=== PATIENT | female | born 1940 | race Caucasian/White ===

== ENCOUNTER → 2016-12-03 | Day surgery (SDC) | payer OTHER ==
[2016-11-26 11:36] VITALS: Ht 162.6 cm; Wt 70.5 kg
[~2016-12-03] VITALS: Ht 162.6 cm; Wt 70.5 kg
[~2016-12-03] MED LIST: ASCO10003 PO; CALCTAB5 PO; CHOL100010 PO; IBUP-1050 PO; IOPAMIDOL INJ 61% 15 ML VIAL ONE; IRON1CAP2 PO; LIDOCAINE HCL 1% MPF 5 ML VIAL ONE; MULT-190 PO; MULT-506 PO; OXYC1CAP5 PO; PANT40TA PO; SODIUM CHLORIDE 0.9% INJ 10 ML VIAL ONE; VITBC PO
--- NOTE | 2016-12-03 14:31 | History & Physical Bridge - [place] ---
H&P Re-Evaluation Bridge Note: I have examined the patient, reviewed the History & Physical and in the interval since the performance of the History & Physical I have noted the following changes of clinical significance: No changes noted
[2016-12-03 14:58] VITALS: TEMP 36.9
--- NOTE | 2016-12-03 15:01 | Discharge Instructions ---
Discharge Instructions Visit Reason for Visit: Lumbar Radiculopathy Discharge Discharge Diagnosis / Problem: leg pain Discharge Goals Goal(s): Decrease discomfort, Improve function Anesthesia . Post Anesthesia Instructions: If you have had General Anesthesia or IV Sedation: * Do not drive today. * Resume driving when surgeon permits. * Do not make important decisions or sign legal documents today. * Call surgeon for: 1. Temperature elevations greater than 101 degrees F. 2. Uncontrollable pain. 3. Excessive bleeding. 4. Persistent nausea and vomiting. 5. Medication intolerance (nausea, vomiting or rash). * For nausea and vomiting use only clear liquids such as: tea, soda, bouillon until nausea subsides, then gradually increase diet as tolerated. * If you have any concerns or questions, call your surgeon's office. If physician is unavailable and it is an emergency, call 911 or go to the nearest emergency room. . Diet Recommendations Recommended Home Diet: resume previous diet Procedures Procedures Performed: Lumbar Epidural Steroid Injection Pending Studies Studies pending at discharge: no Medical Emergencies . Who to Call and When: Medical Emergencies: If at any time you feel your situation is an emergency, please call 911 immediately. . Non-Emergent Contact Non-Emergency issues call your: Specialist . . "Provider Documentation" section prepared by Alan León.
[2016-12-03 15:07] VITALS: BP 151/92; PULSE 86; O2SAT 97
--- NOTE | 2016-12-03 15:25 | OPERATIVE REPORT ---
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 POSTOPERATIVE DIAGNOSIS: Same. PROCEDURE: Right paramedian L5-S1 intralaminar epidural steroid injection under fluoroscopic guidance. SURGEON: Dr. Alan León. INDICATIONS: The patient is a 75-year-old white female who has received epidural injections in the past with great relief of her radicular complaints, typically last 3-5 months in duration. She presents today for an injection to provide her with relief as the last injection she has the effectiveness has worn off. PHYSICAL EXAMINATION: Pleasant female seated comfortably. She has some difficulty with forward flexion. She has reproduction of axial pain. She has normal lower extremity strength. Negative seated straight leg raises, intact sensation distally. CONSENT: Verbal and written consent was obtained from the patient. Risks and benefits were reviewed. Risks include but are not limited to epidural abscess, epidural hematoma, allergic reaction, dural puncture. The patient wishes to proceed. PROCEDURE: The patient was taken back to the special procedures room of the [facility] where she was maintained in a prone position. Backside was cleansed with Betadine x3 and a dry sterile dressing was applied. Fluoroscope was used to identify the L5-S1 intralaminar space. Overlying skin on the right side was anesthetized with 4 mL of lidocaine 1% with a 25 gauge 1.5-inch needle. A 22-gauge 3-1/2 inch Tuohy needle was then directed down towards the intralaminar space. It was advanced under lateral fluoroscopic guidance and loss of resistance was noted at a depth of 5 cm. Isovue-300 contrast 1 mL was injected in which demonstrated epidural uptake pattern which was confirmed with both AP and lateral views. She then underwent injection after negative aspiration of 40 mg of Depo-Medrol and 4 mL of preservative free sodium chloride. Injection was well tolerated and did not reproduce a significant radicular sensation down the leg. DISPOSITION: 1. The patient is taken out into the discharge recovery area where she will be discharged home once discharge once discharge criteria have been met. 2. Follow up in the [facility] office in 2-4 weeks. I attest to the content of the Intraoperative Record and any orders documented therein. Any exceptio ns are noted below.
== END | disposition home or self-care (01) ==
LOC: X.SURG 13:31
PROVIDERS: ATTEND Physical Medicine & Rehabilitation
DX: M48.06 Spinal stenosis, lumbar region (principal); M54.16 Radiculopathy, lumbar region; M43.16 Spondylolisthesis, lumbar region

== ENCOUNTER → 2017-04-02 | Outpatient (CLI) | payer OTHER ==
[~2017-04-02] MED LIST changes: +AZITTAB PO; +CALC600T37 PO; -IOPAMIDOL INJ 61% 15 ML VIAL ONE; -LIDOCAINE HCL 1% MPF 5 ML VIAL ONE; -SODIUM CHLORIDE 0.9% INJ 10 ML VIAL ONE
[2017-04-02 09:56] LABS: BLOOD UREA NITROGEN 12 mg/dl (7-18); BUN/CREATININE RATIO 15.4 (10-20); CALCIUM 8.5 mg/dl (8.5-10.1); CARBON DIOXIDE 32 mmol/L (21-32); CHLORIDE 103 mmol/L (98-107); CREATININE 0.79 mg/dl (0.60-1.20); GLUCOSE 101 mg/dl (70-99); POTASSIUM 4.2 mmol/L (3.5-5.1); SODIUM 141 mmol/L (136-145)
[2017-04-02 09:59] LABS: CHOLESTEROL 256 mg/dl (0-200); CHOLESTEROL/HDL RATIO 4.5; HDL CHOLESTEROL 57 mg/dl; LDL CHOLESTEROL CALCULATED 136 mg/dl; TRIGLYCERIDES 316 mg/dl (0-150); VERY LOW DENSITY LIPOPROT CALC 63 mg/dl
[2017-04-02 10:01] LABS: ESTIMATED AVERAGE GLUCOSE 123 mg/dl; HA1C FLAG Normal (Normal)
== END | disposition home or self-care (01) ==
LOC: C.LAB1850 08:00
PROVIDERS: ATTEND Internal Medicine
DX: E78.5 Hyperlipidemia, unspecified (principal); R73.9 Hyperglycemia, unspecified

== ENCOUNTER → 2017-05-20 | Day surgery (SDC) | payer OTHER ==
[2017-05-08 08:39] VITALS: Ht 162.6 cm; Wt 70.5 kg
[~2017-05-20] VITALS: Ht 162.6 cm; Wt 70.5 kg
[~2017-05-20] MED LIST changes: -AZITTAB PO; -CALC600T37 PO; +IOPAMIDOL INJ 61% 15 ML VIAL ONE; +LIDOCAINE HCL 1% MPF 5 ML VIAL ONE; +SODIUM CHLORIDE 0.9% INJ 10 ML VIAL ONE
[2017-05-20 16:10] VITALS: TEMP 37.1
--- NOTE | 2017-05-20 16:16 | Discharge Instructions ---
Discharge Instructions Date of Service May 20, 2017. Visit Reason for Visit: Lumbar Radiculopathy Discharge Discharge Diagnosis / Problem: right leg pain Discharge Goals Goal(s): Decrease discomfort, Improve function Medications Stopped Medications Name(s): Miracle-last taken Thursday05/17/17 Activity Recommendations Activity Limitations: resume your previous activity Anesthesia . Post Anesthesia Instructions: If you have had General Anesthesia or IV Sedation: * Do not drive today. * Resume driving when surgeon permits. * Do not make important decisions or sign legal documents today. * Call surgeon for: 1. Temperature elevations greater than 101 degrees F. 2. Uncontrollable pain. 3. Excessive bleeding. 4. Persistent nausea and vomiting. 5. Medication intolerance (nausea, vomiting or rash). * For nausea and vomiting use only clear liquids such as: tea, soda, bouillon until nausea subsides, then gradually increase diet as tolerated. * If you have any concerns or questions, call your surgeon's office. If physician is unavailable and it is an emergency, call 911 or go to the nearest emergency room. . Diet Recommendations Recommended Home Diet: resume previous diet Procedures Procedures Performed: LUMBAR EPIDURAL STERIOD INJECTION Pending Studies Studies pending at discharge: no Medical Emergencies . Who to Call and When: Medical Emergencies: If at any time you feel your situation is an emergency, please call 911 immediately. . Non-Emergent Contact Non-Emergency issues call your: Specialist . . "Provider Documentation" section prepared by Alan León. .
[2017-05-20 16:19] VITALS: BP 135/76; PULSE 80; O2SAT 98
--- NOTE | 2017-05-28 07:43 | [facility] Operative Report ---
Operative Report Date of Service May 20, 2017. Operative Report DATE OF SURGERY: 05/20/17. 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 POSTOPERATIVE DIAGNOSIS: Same. PROCEDURE: Right paramedian L5-S1 intralaminar epidural steroid injection under fluoroscopic guidance. SURGEON: Dr. Alan León. INDICATIONS: The patient is a 76-year-old white female who has received epidural injections in the past with great relief of her radicular complaints, typically last 3-5 months in duration. She presents today for an injection to provide her with relief as the last injection she has the effectiveness has worn off. PHYSICAL EXAMINATION: Pleasant female seated comfortably. She has some difficulty with forward flexion. She has reproduction of axial pain. She has normal lower extremity strength. Negative seated straight leg raises, intact sensation distally. CONSENT: Verbal and written consent was obtained from the patient. Risks and benefits were reviewed. Risks include but are not limited to epidural abscess, epidural hematoma, allergic reaction, dural puncture. The patient wishes to proceed. PROCEDURE: The patient was taken back to the special procedures room of the [facility] where she was maintained in a prone position. Backside was cleansed with Betadine x3 and a dry sterile dressing was applied. Fluoroscope was used to identify the L5-S1 intralaminar space. Overlying skin on the right side was anesthetized with 4 mL of lidocaine 1% with a 25 gauge 1.5-inch needle. A 22-gauge 3-1/2 inch Tuohy needle was then directed down towards the intralaminar space. It was advanced under lateral fluoroscopic guidance and loss of resistance was noted at a depth of 5 cm. Isovue-300 contrast 1 mL was injected in which demonstrated epidural uptake pattern which was confirmed with both AP and lateral views. She then underwent injection after negative aspiration of 40 mg of Depo-Medrol and 4 mL of preservative free sodium chloride. Injection was well tolerated and did not reproduce a significant radicular sensation down the leg. DISPOSITION: 1. The patient is taken out into the discharge recovery area where she will be discharged home once discharge once discharge criteria have been met. 2. Follow up in the [facility] office in 2-4 weeks. I attest to the content of the Intraoperative Record and any orders documented therein. Any exceptions are noted below. I attest to the content of the Intraoperative Record and any orders documented therein. Any exceptions are noted below.
== END | disposition home or self-care (01) ==
LOC: X.SURG 14:06
PROVIDERS: ATTEND Physical Medicine & Rehabilitation
DX: M43.16 Spondylolisthesis, lumbar region (principal); M48.06 Spinal stenosis, lumbar region

== ENCOUNTER → 2017-06-04 | Outpatient (CLI) | payer OTHER ==
[~2017-06-04] MED LIST changes: -IOPAMIDOL INJ 61% 15 ML VIAL ONE; -LIDOCAINE HCL 1% MPF 5 ML VIAL ONE; -SODIUM CHLORIDE 0.9% INJ 10 ML VIAL ONE
== END | disposition home or self-care (01) ==
LOC: C.LABSPEC 17:10
PROVIDERS: ATTEND Nurse Practitioner Family
DX: R31.29 Other microscopic hematuria (principal)

== ENCOUNTER → 2017-07-13 | Outpatient (CLI) | payer OTHER ==
--- NOTE | 2017-07-13 11:29 | DIAGNOSTIC IMAGING REPORT ---
MRI LUMBAR SPINE W/O CONTRAST CLINICAL HISTORY: Low back pain with bilateral leg radiculopathy. TECHNIQUE: Sagittal and axial T1, T2 and STIR images were obtained. COMPARISON STUDY: 06/20/2011 OBSERVATIONS: The vertebral bodies and posterior elements appear intact. There is no abnormal bony signal present to suggest a marrow replacement process. There is a stable 1 cm rounded area of decreased signal within the S1 vertebra. This is unlikely to be of clinical significance given its 6 year stability L1-2: No disc protrusions or extrusions. No evidence of spinal canal or neural foraminal compromise. L2-3: There is a minimal circumferential disc bulge. There is no significant spinal or foraminal stenosis L3-4: There is a mild circumferential disc bulge. There is no significant spinal or foraminal stenosis L4-5: There is a mild circumferential disc bulge. There is minimal triangular spinal canal narrowing. There is mild facet joint arthropathy. There is minimal right-sided foraminal narrowing. L5-S1: No disc protrusions or extrusions. No evidence of spinal canal or neural foraminal compromise. The conus medullaris and cauda equina appear normal. There is persistent right-sided hydronephrosis. IMPRESSION: 1. No significant change when compared the prior 2010 study 2. Multilevel spondylitic changes with multilevel disc bulges. Minor triangular spinal canal narrowing at the L4-5 level 3. Persistent dilatation of the right renal pelvis and collecting system Electronically signed by: German Weir M.D. 07/13/2017 11:28 AM Dictated Date/Time: 07/13/2017 11:23 AM
== END | disposition home or self-care (01) ==
LOC: C.MRI 10:25
PROVIDERS: ATTEND Physical Medicine & Rehabilitation
DX: M43.16 Spondylolisthesis, lumbar region (principal); M54.16 Radiculopathy, lumbar region

== ENCOUNTER → 2017-08-10 | Outpatient (CLI) | payer OTHER ==
[2017-08-10 11:39] LABS: ALT/SGPT 33 U/L (12-78); AST/SGOT 27 U/L (15-37); BLOOD UREA NITROGEN 12 mg/dl (7-18); BUN/CREATININE RATIO 15.3 (10-20); CALCIUM 8.9 mg/dl (8.5-10.1); CARBON DIOXIDE 29 mmol/L (21-32); CHLORIDE 101 mmol/L (98-107); CREATININE 0.78 mg/dl (0.60-1.20); GLUCOSE 102 mg/dl (70-99); POTASSIUM 4.2 mmol/L (3.5-5.1); SODIUM 138 mmol/L (136-145)
[2017-08-10 11:42] LABS: CHOLESTEROL 271 mg/dl (0-200); CHOLESTEROL/HDL RATIO 3.9; HDL CHOLESTEROL 70 mg/dl; LDL CHOLESTEROL CALCULATED 162 mg/dl; TRIGLYCERIDES 195 mg/dl (0-150); VERY LOW DENSITY LIPOPROT CALC 39 mg/dl
== END | disposition home or self-care (01) ==
LOC: C.LAB1850 09:30
PROVIDERS: ATTEND Internal Medicine
DX: E78.5 Hyperlipidemia, unspecified (principal); R73.9 Hyperglycemia, unspecified

== ENCOUNTER 2017-09-10 02:46 | Emergency (ER) | payer OTHER ==
[~2017-09-10 02:46] MED LIST changes: +CALC600T37 PO; -CALCTAB5 PO
[2017-09-10] MEDS ORDERED: ALBUT/IPRATROP 3MG/0.5MG NEB 3 ML VIAL INH STA (03:05)
--- NOTE | 2017-09-10 03:07 | EMERGENCY ROOM VISIT NOTE ---
History Report prepared by Natan: Rebekah Scott Under the Supervision of: Dr. Greyson Marquis M.D. First contact with patient: 03:06 Stated Complaint: TROUBLE BREATHING History of Present Illness The patient is a 76 year old female who presents to the Emergency Room with complaints of worsening shortness of breath over the last 3 days. The patient states that she developed a runny nose and a cough. She states that she started medication for these symptoms, which is when her shortness of breath began. She states that she also began to lose her voice. The patient reports that she was unable to sleep tonight, but that she has not been sleeping well the last couple of nights. She states that she is a former smoker, and that she quit 8 years ago. She denies nausea, abdominal pain, and chest pain. The patient also complains of back pain but states that she did not have her back injection yesterday. She denies a history of diabetes. She reports that she got her flu shot done last week. Source of History: patient Onset: 3 days ago Position: other (global) Quality: other (shortness of breath ) Timing: worsening Associated Symptoms: + cough, No chest pain, No nausea, No abdominal pain Review of Systems See HPI for pertinent positives & negatives. A total of 10 systems reviewed and were otherwise negative. Past Medical & Surgical Medical Problems: (1) COPD (chronic obstructive pulmonary disease) Family History No pertinent family history stated. Social History Smoking Status: Former Smoker Marital Status: Occupation Status: retired Current/Historical Medications Scheduled Ascorbic Acid (Vitamin C), 1,000 UNITS PO QAM Azithromycin (Zithromax Z-Nhan), 1 PKT PO UD Calcium (Calcium), 1 TAB PO QAM Cholecalciferol (Vitamin D), 1 TAB PO QAM Iron Combinations (Iron Complex), 65 MG PO QAM Multivitamin (Multivitamin), 1 TAB PO QAM Ocuvite Preservision (Ocuvite Preservision), 1 TAB PO BID Pantoprazole (Protonix), 40 MG PO QAM Vitamin B Complex (Vitamin B Complex), 1 TAB PO QD@08 Scheduled PRN Ibuprofen (Advil), 400 MG PO Q6-8H PRN for Pain Oxycodone Hcl (Oxycodone Hcl), 5 MG PO Q 8-12 HOURS PRN for Pain Allergies Coded Allergies: Codeine (Verified Allergy, Unknown, TROUBLE BREATHING IN HER CHEST., 09/09) Physical Exam Vital Signs Date Time Temp Pulse Resp B/P (MAP) Pulse Ox O2 Delivery O2 Flow Rate FiO2 09/10/17 06:24 89 18 128/88 98 09/10/17 06:04 89 18 128/88 98 Room Air 09/10/17 05:11 87 20 136/82 97 Room Air 09/10/17 04:08 88 18 153/77 95 Room Air 09/10/17 03:27 Room Air 09/10/17 03:00 87 20 129/70 96 Room Air 09/10/17 02:53 88 Physical Exam GENERAL: Patient is mildly anxious appearing and in no acute distress. HEENT: No acute trauma, normocephalic atraumatic, mucous membranes moist, no nasal congestion, no scleral icterus. Mild rhinorrhea bilateral naris. NECK: No stridor, no adenopathy, no meningismus, trachea is midline. LUNGS: No dyspnea. Faint expiratory wheezing bilateral lungs with good air movement. No wheeze, no rhonchi. HEART: Regular rate and rhythm. No murmurs, rubs, gallops appreciated. ABDOMEN: Soft, nontender, bowel sounds positive, no masses appreciated, no peritonitis. BACK: No midline tenderness, no CVA tenderness EXTREMITIES: Normal motion all extremities, no cyanosis, no edema. NEUROLOGIC: Alert and oriented, no acute motor or sensory deficits, no focal weakness, cranial nerves grossly intact. SKIN: No rash, no jaundice, no diaphoresis. Medical Decision & Procedures ER Provider Diagnostic Interpretation: X-ray 1 View Portable: Mild emphysema. Slight irregularity of left heart border new from previous chest X-ray. No effusion. No pneumothorax. Radiology results and stated below per my review and [employer]. CTA CHEST: Comparison: CT chest 10/24/10 No evidence of pulmonary embolism. Dilated right main pulmonary artery with a kinked appearance at its proximal aspect, possibly related to pulmonary hypertension. No aortic aneurysm or dissection. Emphysema. Large sliding hiatal hernia. Mild subsegmental atelectasis/scarring. 3 mm nodule left upper lobe. Left and right main hepatic bile ducts and common hepatic duct are dilated, measuring up to 1.4 cm at common hepatic duct. Common bile duct is not imaged. Laboratory Results 09/10/17 03:10 Test 09/10/17 03:10 09/10/17 03:20 D-Dimer 610 ug/L FEU (0-500) Anion Gap 7.0 mmol/L (3-11) Estimated GFR () 85.7 Estimated GFR (Non- 74.0 BUN/Creatinine Ratio 22.2 (10-20) Calcium Level 8.4 mg/dl (8.5-10.1) Troponin I < 0.015 ng/ml (0-0.045) Influenza Type A Antigen Neg for Influ A (NEG) Influenza Type B Antigen Neg for Influ B (NEG) Laboratory results as reviewed by me. Medications Administered Medications (Trade) Dose Ordered Sig/Kathy Route Start Time Stop Time Status Last Admin Dose Admin Albuterol/ Ipratropium (Duoneb) 3 ml NOW STAT INH 09/10/17 03:05 09/10/17 03:06 DC 09/10/17 03:23 3 ML Azithromycin (Zithromax Tab) 500 mg NOW STAT PO 09/10/17 06:11 09/10/17 06:12 DC 09/10/17 06:23 500 MG ECG Indication: SOB/dyspnea Rate (beats per minute): 89 Rhythm: normal sinus Findings: no acute ischemic change, no ectopy ED Course 0253: The patient was evaluated in room B6. A complete history and physical exam was performed. 0305: Ordered Duoneb 3 ml INH. 0345: The patient reports feeling better. 0440: I discussed in depth the pros and cons of a CT scan. The patient wishes to proceed with the CT scan. 0611: Ordered Zithromax Tab 500 mg PO. 0619: Reevaluated the patient. Discussed results and discharge instructions: She verbalized understanding and agreement. The patient is ready for discharge. Medical Decision Differential: Infectious, Reactive Airway Disease, Pneumonia, Pneumothorax, COPD , CHF, ACS, Pulmonary Embolism, MSK, GI, Dissection, amongst other etiologies entertained. 76 yr old female with cough, rhinorrhea, sore throat/hoarse voice, and some shortness of breath. She appears to be shob though states that she feels fine now and the she walks long distances daily without issue. Runny nose on and off last few weeks, though other symptoms acute over last few days. She looks well and other than laryngitis like voice and some mild expiratory wheezing no significant findings. History of smoking and CXR consistent with this. With anxiety and history on waxing/waning symptoms and her age felt dimer reasonable which was mildly elevated. We discussed the possibility of PE being low but not impossible and the options of doing CT PE study vs avoiding it. After shared decision patient wishes o proceed with CT PE. CT PE revealed evidence of emphysema, pulmonary artery abnormality consistent with pulm htn, liver findings , and small nodules. No abdominal complaints nor TTP thus I do not feel her symptoms are GI related. I feel that findings on CT represent chronic things and not cause of symptoms/shob today. While she may benefit some from seroids, I feel that given already inability to get sleep, adding in steroid would likely just worsen this and her anxiety. With just minimal wheezing I do not see that she requires continued albuterol. However, given smoking history, emphysema it does seem reasonable to add on abx. QTC OK thus azithro given. She was heavily advised on multiple requests to see her PCP in the very near future for repeat evaluation and to discuss findings from today. Stable and comfortable with this plan. Aware RTED at any time if worsening or other concerns. Medication Reconcilliation Current Medication List: was personally reviewed by me Blood Pressure Screening Patient's blood pressure: Normal blood pressure Impression Primary Impression: Shortness of breath Additional Impressions: Bronchitis Laryngitis Rhinorrhea Emphysema of lung Pulmonary hypertension Scribe Attestation The scribe's documentation has been prepared under my direction and personally reviewed by me in its entirety. I confirm that the note above accurately reflects all work, treatment, procedures, and medical decision making performed by me. Departure Information Dispostion Home / Self-Care Prescriptions Azithromycin (ZITHROMAX Z-NHAN) 250 Mg Tab 1 PKT PO UD, #1 PKT Prov: Greyson Marquis M.D. 09/10/17 Referrals Justin Dow M.D. (PCP) Forms HOME CARE DOCUMENTATION FORM, IMPORTANT VISIT INFORMATION Patient Instructions ED Laryngitis, My [facility] Additional Instructions You were given first dose of Azithromycin today. You can wait until tomorrow ( 09/10) to begin the prescription. Please follow up with your primary care provider for recheck in the next few days. Your CT Scan revealed you have Emphysema as well as Pulmonary Artery Enlargement consistent with Pulmonary Hypertension. You may need to be seen by a Morale Officer for further evaluation but you should discuss this with your primary provider and ask that he review the CT Scan results that were done this evening. We are always here to help. Problem Qualifiers
[2017-09-10 03:46] LABS: BLOOD UREA NITROGEN 17 mg/dl (7-18); BUN/CREATININE RATIO 22.2 (10-20); CALCIUM 8.4 mg/dl (8.5-10.1); CARBON DIOXIDE 27 mmol/L (21-32); CHLORIDE 106 mmol/L (98-107); CREATININE 0.77 mg/dl (0.60-1.20); GLUCOSE 110 mg/dl (70-99); POTASSIUM 4.2 mmol/L (3.5-5.1); SODIUM 140 mmol/L (136-145)
[2017-09-10] MEDS ORDERED: OPTIRAY 320 IV PRN (04:45)
[2017-09-10] MEDS ORDERED: AZITTAB PO (05:59)
[2017-09-10] MEDS ORDERED: AZITHROMYCIN 250 MG TAB PO STA (06:11)
[2017-09-10 06:24] VITALS: BP 128/88; PULSE 89; O2SAT 98
--- NOTE | 2017-09-10 07:17 | DIAGNOSTIC IMAGING REPORT ---
CHEST ONE VIEW PORTABLE CLINICAL HISTORY: [facility] dyspnea COMPARISON STUDY: 04/04/2014 FINDINGS: The bones soft tissues and hemidiaphragms are normal. The cardiomediastinal silhouette is normal. The lungs are clear. The pulmonary vasculature is normal. IMPRESSION: Negative chest. The above report was generated using voice recognition software. It may contain grammatical, syntax or spelling errors. Electronically signed by: Harjit Noonan M.D. 09/10/2017 7:16 AM Dictated Date/Time: 09/10/2017 7:14 AM
--- NOTE | 2017-09-10 07:32 | DIAGNOSTIC IMAGING REPORT ---
CT ANGIOGRAM OF THE CHEST CLINICAL HISTORY: Atypical chest pain. Dyspnea. COMPARISON STUDY: Chest x-ray dated 09/10/2017. Chest CT dated 10/24/2010. TECHNIQUE: Following the IV administration of 93 cc of Optiray 320, CT angiogram of the chest was performed from the upper abdomen to the thoracic inlet utilizing the pulmonary embolus protocol. Images are reviewed in the axial, sagittal, and coronal planes. 3-D MIPS images are created and assessed. IV contrast was administered without complication. A dose lowering technique was utilized adhering to the principles of ALARA. The examination is degraded by motion artifact. CT DOSE: 264.53 mGy.cm FINDINGS: Thyroid: Imaged portions of the thyroid gland appear atrophic. A 10 mm low-attenuation nodule is seen in the left lobe. Thoracic aorta: The thoracic aorta is normal in caliber and demonstrates standard 3-vessel arch anatomy. No dissection is seen. Pulmonary vasculature: The pulmonary trunk is normal in caliber. There is a somewhat kinked appearance of the right main pulmonary artery with distal dilatation measuring up to 2.7 cm. This is unchanged from previous and of indeterminant significance. There are no filling defects identified in main, lobar, or segmental pulmonary branches to suggest pulmonary embolus. Heart: The heart is top normal in size and without pericardial effusion. There are coronary artery calcifications. Lungs and pleural spaces: Evaluation of lung parenchyma is degraded by motion artifact. The trachea and central airways are clear. Emphysema is noted. There is no airspace consolidation or pleural effusion. Scarring is present in the right middle lobe. A 2 mm right upper lobe pulmonary nodule seen image #155 is unchanged from 2010 and of doubtful significance. Mediastinum: There is no mediastinal lymphadenopathy. Miley: Clear. Axillae: There is no axillary lymphadenopathy. Upper abdomen: There is mild central intrahepatic biliary ductal dilatation. There is a large hiatal hernia, with the majority of the stomach located in the thoracic cavity. Skeletal structures: The skeletal structures are osteopenic. No lytic or blastic bony lesions are seen. IMPRESSION: 1. There is no evidence of pulmonary embolus in the main, lobar, or segmental pulmonary arteries. 2. Emphysema. 3. There is no airspace consolidation or pleural effusion. 4. Large hiatal hernia. 5. The right main pulmonary artery has a somewhat kinked appearance and appears dilated distally. This is of indeterminant significance and is unchanged from 2010. This may be related to pulmonary artery hypertension. 6. Additional findings as above. Electronically signed by: Sd Carter M.D. 09/10/2017 7:31 AM Dictated Date/Time: 09/10/2017 7:24 AM
[2017-09-10 07:41] LABS: BASO % 0.3 %; BASO ABS # 0.02 K/uL (0-0.2); COMPLETE YES; EOS % 3.3 %; HEMATOCRIT 36.3 % (37-47); IG% 0.2 %; MEAN CELL VOLUME 94.5 fL (80-100); MEAN CORPUSCULAR HEMOGLOBIN 29.9 pg (25-34); MEAN CORPUSCULAR HGB CONC 31.7 g/dl (32-36); MEAN PLATELET VOLUME 9.7 fL (7.4-10.4); MONO % 7.7 %; NEUT % 65.5 %; PLATELET COUNT 205 K/uL (130-400); RED BLOOD COUNT 3.84 M/uL (4.2-5.4); WHITE BLOOD COUNT 6.09 K/uL (4.8-10.8)
== END 2017-09-10 06:25 | disposition home or self-care (01) ==
LOC: C.EDB 02:46
DX: J40 Bronchitis, not specified as acute or chronic (principal); J04.0 Acute laryngitis; R07.89 Other chest pain; J43.9 Emphysema, unspecified; K44.9 Diaphragmatic hernia without obstruction or gangrene; Z87.891 Personal history of nicotine dependence; J34.89 Other specified disorders of nose and nasal sinuses; I27.20 Pulmonary hypertension, unspecified

== ENCOUNTER → 2017-11-18 | Outpatient (CLI) | payer OTHER ==
[~2017-11-18] MED LIST changes: +CYCL10TA6 PO; +GABA-113 PO
--- NOTE | 2017-11-18 11:58 | DIAGNOSTIC IMAGING REPORT ---
R HIP UNILATERAL 2 VIEWS CLINICAL HISTORY: M79.609 Limb [id number] pain COMPARISON: None. DISCUSSION: Mild degenerative narrowing right hip joint space. No evidence for acetabular protrusion. Mild sclerosis superior margin of the acetabulum on a degenerative basis. No evidence for abnormal soft tissue calcification. IMPRESSION: Mild degenerative change. No acute process. The above report was generated using voice recognition software. It may contain grammatical, syntax or spelling errors. Electronically signed by: Harjit Noonan M.D. 11/18/2017 11:56 AM Dictated Date/Time: 11/18/2017 11:56 AM
== END | disposition home or self-care (01) ==
LOC: C.RAD1850 11:39
PROVIDERS: ATTEND Internal Medicine
DX: M79.609 Pain in unspecified limb (principal)

== ENCOUNTER → 2017-11-27 | Outpatient (CLI) | payer OTHER ==
[~2017-11-27] MED LIST changes: -CYCL10TA6 PO; -GABA-113 PO
--- NOTE | 2017-11-27 10:56 | DIAGNOSTIC IMAGING REPORT ---
ULTRASOUND RIGHT LOWER EXTREMITY VENOUS CLINICAL HISTORY: Right calf swelling. COMPARISON STUDY: Right lower extremity venous ultrasound dated 01/25/2015. TECHNIQUE: Real-time, grayscale, and color Doppler sonography of the deep veins of the right lower extremity was performed from the inguinal crease to the calf. Compression and augmentation were utilized. FINDINGS: There is no sonographic evidence of deep venous thrombosis identified in the right lower extremity. The common femoral, superficial femoral, and popliteal veins are patent and normally compressible. The greater saphenous vein and the profunda femoris vein at the junction with the common femoral vein are clear. The visualized calf veins are patent. IMPRESSION: There is no sonographic evidence of deep venous thrombosis identified in the right lower extremity. Electronically signed by: Sd Carter M.D. 11/27/2017 10:54 AM Dictated Date/Time: 11/27/2017 10:54 AM
== END | disposition home or self-care (01) ==
LOC: C.ULTRBC 10:32
PROVIDERS: ATTEND Physical Medicine & Rehabilitation
DX: M79.89 Other specified soft tissue disorders (principal)

== ENCOUNTER → 2018-06-07 | Outpatient (CLI) | payer OTHER ==
[~2018-06-07] MED LIST changes: -ASCO10003 PO
[2018-06-07 12:16] LABS: HEMATOCRIT 37.5 % (37-47); HEMOGLOBIN 12.2 g/dL (12.0-16.0); MEAN CELL VOLUME 93.3 fL (80-100); MEAN CORPUSCULAR HEMOGLOBIN 30.3 pg (25-34); MEAN CORPUSCULAR HGB CONC 32.5 g/dl (32-36); MEAN PLATELET VOLUME 9.9 fL (7.4-10.4); PLATELET COUNT 263 K/uL (130-400); RED CELL DISTRIBUTION WIDTH CV 13.7 % (11.5-14.5); RED CELL DISTRIBUTION WIDTH SD 46.3 fL (36.4-46.3); WHITE BLOOD COUNT 5.62 K/uL (4.8-10.8)
[2018-06-07 12:35] LABS: ALBUMIN 3.8 gm/dl (3.4-5.0); ALKALINE PHOSPHATASE 63 U/L (45-117); ALT/SGPT 25 U/L (12-78); AST/SGOT 12 U/L (15-37); BLOOD UREA NITROGEN 14 mg/dl (7-18); CALCIUM 8.5 mg/dl (8.5-10.1); CARBON DIOXIDE 29 mmol/L (21-32); CHOLESTEROL 258 mg/dl (0-200); GLUCOSE 99 mg/dl (70-99); LDL CHOLESTEROL CALCULATED 156 mg/dl; POTASSIUM 4.1 mmol/L (3.5-5.1); SODIUM 135 mmol/L (136-145); TOTAL PROTEIN 7.1 gm/dl (6.4-8.2)
== END | disposition home or self-care (01) ==
LOC: C.LAB1850 09:52
PROVIDERS: ATTEND Internal Medicine
DX: E78.5 Hyperlipidemia, unspecified (principal); G89.29 Other chronic pain; M79.609 Pain in unspecified limb

== ENCOUNTER 2024-01-01 11:29 | Observation (INO) ==
--- NOTE | 2024-01-01 11:55 | ED Triage Note ---
Date of Service January 01, 2024 Provider in Triage Author: Dagmar Puri History of Present Illness This patient was briefly evaluated while in triage. An abbreviated physical exam was performed. This patient is a 83-year-old Female who presents to the ED for evaluation weakness, poor appetite had diarrhea this morning and passed out-hit head/face "I'm just not doing well" poor historian Physical Exam GENERAL: NAD CARDIOVASCULAR: RRR RESPIRATORY: CTA ABDOMEN: BS x 4. Nontender to palpation. Initial orders for labs and / or imaging were placed and patient was placed in the waiting area until a bed is available. Please see further documentation for the full ED course.
[2024-01-01 13:28] LABS: Basophils # (auto) 0.04 K/uL (0.00-0.20); Basophils % (auto) 0.5 %; Eosinophils # (auto) 0.07 K/uL (0.00-0.50); Eosinophils % (auto) 0.8 %; Hematocrit (blood only) 42.2 % (37.0-47.0); Hemoglobin 13.7 g/dl (12.0-16.0); Immature Granulocytes # (auto) 0.03 K/uL (0.01-0.20); Immature Granulocytes % (auto) 0.3 %; Lymphocytes # (auto) 1.39 K/uL (1.20-3.40); Lymphocytes % (auto) 16.1 %; Mean Corpuscular Hemoglobin 28.6 pg (25.0-34.0); Mean Corpuscular Hgb Conc 32.5 g/dL (32.0-36.0); Mean Corpuscular Volume 88.1 fL (80.0-100.0); Mean Platelet Volume 9.4 fL (9.4-12.4); Monocytes # (auto) 0.59 K/uL (0.11-0.59); Monocytes % (auto) 6.8 %; Neutrophils # (auto) 6.51 K/uL (1.40-6.50); Neutrophils % (auto) 75.5 %; Platelet Count 307 K/uL (130-400); RDW Coefficient of Variation 14.2 % (11.5-14.5); RDW Standard Deviation 45.2 fL (36.4-46.3); Red Blood Count 4.79 M/uL (4.20-5.40); White Blood Count 8.63 K/ul (4.8-10.8)
--- NOTE | 2024-01-01 13:37 | CT Scan Report ---
HEAD CT NONCONTRAST CT DOSE: 625.8 mGy.cm HISTORY: syncope, hit head TECHNIQUE: Multiaxial CT images of the head were performed without the use of intravenous contrast. A utomated exposure control was utilized for this study. A dose lowering technique was utilized adheri ng to the principles of ALARA. Comparison: Head CT 09/07/2023. Findings: Chronic opacification of the left ethmoid air cell again noted. The mastoid air cells are c lear. Mild motion artifact. The calvarium and skull base are intact. There is no mass, hematoma, midl ine shift, acute infarct. White matter hypodensity is nonspecific but suggestive of microvascular isc hemic change. The ventricles and sulci demonstrate mild age-related involutional changes. Impression: Mild motion artifact. No definite acute intracranial abnormality. ACT 112: Negative or not required by law. Electronically signed by: Live Plasencia M.D. 01/01/2024 1:36 PM
[2024-01-01 13:53] LABS: Alanine Aminotransferase 11 U/L (7-52); Albumin Globulin Ratio 1.4 (0.9-2); Albumin Level 4.6 gm/dl (3.4-5.0); Alkaline Phosphatase 58 U/L (34-104); Anion Gap 7 (3-11); Aspartate Aminotransferase 15 U/L (13-39); BUN Creatinine Ratio 17.9 (10-20); Bilirubin,Total 0.3 mg/dl (0.2-1.0); Blood Urea Nitrogen 20 mg/dl (6-23); Calcium 9.7 mg/dl (8.6-10.3); Carbon Dioxide 28 mmol/L (21-32); Chloride 100 mmol/L (98-107); Est GFR (African American) 51.9 ml/min; Est GFR (Non-African American) 44.8 ml/min; Globulin 3.2 gm/dl (2.5-4.0); Glucose 104 mg/dl (70-99(Fasting)); Potassium 4.4 mmol/L (3.5-5.1); Sodium 135 mmol/L (136-145); Total Protein 7.8 gm/dl (6.0-8.3)
[2024-01-01 13:57] LABS: Troponin I High Sensitivity 46.9 pg/ml (0-14)
[2024-01-01 14:07] LABS: Thyroid Stimulating Hormone 3.065 uIu/ml (0.300-4.500)
--- NOTE | 2024-01-01 15:43 | Electrocardiogram Report ---
Test Reason : Blood Pressure : / mmHG Vent. Rate : 082 BPM Atrial Rate : 082 BPM P-R Int : 148 ms QRS Dur : 056 ms QT Int : 358 ms P-R-T Axes : 036 -03 038 degrees QTc Int : 418 ms Normal sinus rhythm Normal ECG When compared with ECG of 07-SEP-2023 13:34, Nonspecific T wave abnormality no longer evident in Lateral leads Confirmed by Justin Toth ([id number]) on 01/01/2024 3:43:08 PM Referred By: Confirmed By:Justin Toth
--- NOTE | 2024-01-01 17:11 | History & Physical Report ---
Date of Service January 01, 2024 Assessment & Plan (1) Syncope and collapse: Plan: Syncope x 2 with fall and head strike the morning of 01/[address] revealed no definite acute cranial abnormalities Hx of symptomatic anemia; however, H&H WNL EKG revealed NSR at 82 bpm; QTc 418 Troponin elevated at 46.9--> 91.1; Trend q4h x 3 Clinically, patient denies chest pain Fall precautions TSH WNL Echocardiogram ordered, pending Orthostatics ordered, pending UA ordered, pending PT/OT consulted A.m. CBC, BMP (2) B12 deficiency: Plan [facility]position: [facility] Full code Regular diet Fall precautions VTE PPx: Teds History of Present Illness Chief Complaint: Syncope Primary Care Provider: Kemar Sawyer DO Longoria is a 83-year-old female with PMH of COPD, left-sided Oleary's palsy, HLD, GERD, chronic vasomotor rhinitis, adjustment disorder, and CHASE. She presented for syncopal episode and fall the morning of 01/01. Patient's good friend (Edgardo) is present at the bedside and provides additional history, as patient appears anxious and upset about the prospect of staying. Patient's friend reports that she fell in the kitchen this morning, and when he helped her get back up, she got dizzy again while eating at the sink and fell and brought them both down. She denies head strike and LOC. She denies tripping. She denies having her legs give out. She denies dizziness prior to her fall, and is unsure why she fell but reports that she "just felt weak" and went down. Of note, the patient's friend reports that she had diarrhea the morning of 01/01. Patient denies any prior falls. She does not use a cane or walker for ambulation. She reports that she took pantoprazole, iron, and her vitamins this morning; no other medications. Patient is friend denies any slurred speech, unilateral deficits, or facial droop at that time. No changes in diet. No supplemental oxygen at home. She denies alcohol use, tobacco use, and smoking. No history of stroke, seizures, or MIs. Patient does note that she had a left shoulder injection earlier in the week, and that she takes tramadol for chronic back pain. She also has injections in her left eye, which has she been having for a while; follows with Dr. Gaytan at [facility]. Vital stable at time admission. ROS: Patient endorses generalized weakness, tingling in legs (resolved), and diarrhea. Patient denies fever, chills, nighsweats, changes in hearing/taste/smell/vision, blurry vision, photophobia, dizziness, lightheadedness, CARRILLO, confusion, slurred speech, facial droop, chest pain, cough, SOB, abdominal pain, nausea, vomiting, urinary symptoms, urination, or blood in urine or stool. Allergies Allergy/AdvReac Type Severity Reaction Status Date / Time No Known Allergies Allergy Verified 01/01/24 17:18 Home Medications Medication Instructions Recorded Confirmed Type ascorbic acid (vitamin C) 1,000 mg 1 g PO QAM 01/07/19 01/01/24 History tablet (Vitamin C) [id number] 8 mg-folic 400 1 tab PO QAM 01/07/19 01/01/24 History mcg-K 50 mcg-lutein 300 mcg tablet (Centrum Silver Women) vit C 250 mg-vit E 90 mg-zinc 40 1 tab PO BID 01/07/19 01/01/24 History mg-copper 1 [id number]-[id number] capsule (PreserVision AREDS-2) acetaminophen 500 mg tablet 500 mg PO BID PRN Pain 09/15/23 01/01/24 History ferrous sulfate 325 mg (65 mg 325 mg PO Q OTHER DAY 90 days #45 09/21/23 01/01/24 Rx iron) tablet,delayed release tabs pantoprazole 40 mg tablet,delayed 40 mg PO DAILY 11/11/23 01/01/24 History release tramadol 50 mg tablet 50 mg PO BID PRN pain #30 tabs 11/18/23 01/01/24 Rx methocarbamol 750 mg tablet 750 mg PO TID PRN back spasm #30 12/16/23 01/01/24 Rx tabs Past Med/Surg History Medical History Schatzki's ring Hiatal hernia BCC (basal cell carcinoma) Gastric ulcer Left-sided Oleary's palsy UPJ (ureteropelvic junction) obstruction Right lumbar radiculopathy Vaginal prolapse Chronic obstructive pulmonary disease Chronic pain 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, lumbar region Osteopenia Surgical History History of esophagogastroduodenoscopy (EGD) History of cataract surgery History of tooth extraction S/P epidural steroid injection History of cholecystectomy History of tonsillectomy History of appendectomy H/O basal cell carcinoma excision History of colonoscopy Hx of lumpectomy History of exploratory laparotomy Family History Father Family history of stomach cancer Family history of pancreatic cancer Mother Diabetes Myocardial infarction Family history of diabetes mellitus Grandmother Diabetes Other No family history of adverse response to anesthesia Denies family history of Ovarian cancer Prostate cancer Breast cancer Lung cancer Colorectal cancer Stroke Social History Smoking Status: Former smoker Tobacco Type: Cigarettes Age Started Using Tobacco: 18; Age Quit Using Tobacco: 25; packs per day: 0.25; Second Hand Exposure: No; Do You Dip or Chew Tobacco: No; Hx Alcohol Use: Yes Alcohol type: wine Alcohol Intake Frequency: Monthly or Less Hx Substance Use: No Preferred Language: Ukrainian Communication Ability: Effective Visual Impairment: Limited Hearing Ability: Normal Demurrage Agent Required: No Beliefs That Will Affect Care: None marital status: / Current Living Situation: Significant Other Current Living Situation Comment: Edgardo Manning, Friend current occupational status: retired current occupation: used to work in a [employer], 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 [place] How many Children do You have: 2 Feels Safe at Home: Yes Childhood Exposure to Second-Hand Smoke: No Diet: regular caffeine: Yes Dental Care, Regularly: Yes Physical Activity Frequency: 3-4 Times per Week Seatbelt Use: always Sunscreen Use: Yes Assistive Devices: Denture - Upper, Denture - Lower and Glasses Review of Systems Review of Systems: See HPI above Physical Exam Physical Exam: General: no acute distress; anxious; non-toxic appearing; cooperative HEENT: normocephalic, atraumatic; no scleral icterus; PERRLA w/ EOMs intact; moist mucus membrane; vision and hearing grossly intact Neck: supple; no lymphadenopathy; trachea midline Skin: warm, dry without signs of tenting; no cyanosis; no rashes, bruising, lesions, or erythema noted CV: chest wall NTP; RRR; S1/S2 normal; no murmurs/rubs/gallops; pulses intact and symmetric at radial, DP, and PT Lungs: no acute respiratory distress; symmetrical chest wall expansion; clear breath sounds across all lung staton w/o adventitious sounds; no wheezing ABD: Soft, NTP; BS present; no rebound/guarding; no distention MSK: no tics or fasciculations; no edema noted in the LEs b/l, nonerythematous Neuro: Patient is alert and oriented to name//location, but not to month, and questionably to purpose; fluent speech; no facial droop; no focal deficits; sensation grossly intact in the LEs b/l; negative pronator drift Results & Data Results & Data Vital Signs (Past 12 Hours) Vital Signs Temp Pulse Pulse Resp BP BP Pulse Ox 01/01/24 16:52 79 16 129/62 97 01/01/24 16:45 76 01/01/24 15:18 81 16 99/65 L 97 01/01/24 15:18 01/01/24 15:18 01/01/24 11:50 36.7 C 121 H 18 109/69 98 O2 Del Method 01/01/24 16:52 Room Air 01/01/24 16:45 01/01/24 15:18 Room Air 01/01/24 15:18 Room Air 01/01/24 15:18 Room Air 01/01/24 11:50 Room Air Laboratory Results Abnormal lab results 01/01/24 01/01/24 Range/Units 13:09 15:28 Neut # (Auto) 6.51 H (1.40-6.50) K/uL Sodium 135 L (136-145) mmol/L Glucose 104 H (70-99(Fasting)) mg/dl Troponin I High Sens 46.9 H 91.1 H* D (0-14) pg/ml Diagnostic Findings Head CT 01/01/24 11:[address] DOSE: 625.8 mGy.cm HISTORY: syncope, hit head TECHNIQUE: Multiaxial CT images of the head were performed without the use of intravenous contrast. Automated exposure control was utilized for this study. A dose lowering technique was utilized adhering to the principles of ALARA. Comparison: Head CT 09/07/2023. Findings: Chronic opacification of the left ethmoid air cell again noted. The mastoid air cells are clear. Mild motion artifact. The calvarium and skull base are intact. There is no mass, hematoma, midline shift, acute infarct. White matter hypodensity is nonspecific but suggestive of microvascular ischemic change. The ventricles and sulci demonstrate mild age-related involutional changes. Impression: Mild motion artifact. No definite acute intracranial abnormality. ACT 112: Negative or not required by law. Electronically signed by: Live Plasencia M.D. 01/01/2024 1:36 PM Code Status & VTE Plan Code Status Full code VTE Prophylaxis Plan VTE Prophylaxis will be ordered: Yes Supervising Physician Co-Signing Physician Notes Patient seen and examined, chart reviewed, case discussed with Live Mcdaniels, PAC and I agree with the assessment and plan as above except as otherwise noted Labs and images reviewed Swati is an 83yo F who presents with syncope x [address] is normal and without intracranial bleed. EKG is without dysrhythmia. Troponin is mildly elevated and trended. Patient has had no chest pain at any point. At bedside she reports she does feel generally weak with some diarrhea recently. She reports that she was eating sink and then got lightheaded and fell, attempted to stand and fell again. Lungs are clear, heart rate is regular, no lower extremity swelling .she had a slight prodrome of weakness prior to her episode. No focal deficits on exam. No leukocytosis, creatinine is at baseline. No urinary symptoms.. Hemoglobin is normal. Normotensive at bedside . orthostatics pending. Agree with overnight monitoring for troponin trend, echo as noted, and monitoring for arrhythmia. Clinically stable at time of bedside assessment PG Care Time/CCT Total # of Minutes Spent Total Time Spent with Patient: Total time spent is greater than 50% in coordination of care (as documented) at patient's floor/unit and/or counseling patient: [place] [address] INT INP/OBS CARE 1/40MIN Patient Type Established History Detailed Exam Detailed Medical Decision Making Low Complexity Diagnoses Syncope and collapse R55 B12 deficiency E53.8
[2024-01-01] MEDS ORDERED: MELATONIN 3 MG TAB PO PRN (17:59)
--- NOTE | 2024-01-01 18:23 | Emergency Department Note ---
Impression & Plan Syncope and collapse, Elevated troponin, CHI (closed head injury) ED Provider Note NAME: JESSE GALLEGOS AGE: 83 SEX: Female INFORMANT: Patient and ED PROVIDER(S): Marv Ludwig MD CHIEF COMPLAINT: Syncope PLAN: Disposition: Admitted Outpatient prescription management: none Referral: None MEDICAL DECISION MAKING: Patient present because of a syncopal like episode. She had some mild confusion on examination about the details. notes that she has had forgetful issues in the past and does not think this is anything different. She had head CT that was done and negative. Patient's ECG did not show any acute findings noted cardiac monitoring. Patient's cardiac troponin was mildly elevated and a repeat troponin was done. This increased significantly. I am concerned about a possible cardiac source. Patient was initially reluctant to stay in the hospital although did not remember initial conversation about the findings. In light of this I did strongly recommend the need to stay in the hospital and patient was in agreement. Discussed this with the as well as he was present in the room. Patient will need further management in the hospital. Consultation was made with Dr. Mitchel Bills of the [facility] service. Case discussed and diagnostics were reviewed patient was evaluated in the ER for further management. Care/management discussed with: land surveying manager Level of care consideration(s): After review of the information above and other included data, I feel the patient requires escalation of care to admission Triage Nursing notes: reviewed and agree them. Vital Signs: reviewed and remarkable for no significant abnormalities Additional History obtained from: Patient's . He noted no slurred speech or strokelike symptoms after the event. Notes they were very short in duration less than a minute. Chronic Medical/Social Conditions affecting care: Patient denies Prior/ Outside/ External records reviewed: none Differential Diagnosis:Vasovagal event, dehydration, infection, hypoglycemia, electrolyte abnormalities, cardiac sources, intracerebral event, pulmonary embolism, seizure, toxicologic, neurologic, as well as other pathologies. Diagnostics, independently interpreted by me: ECG: Twelve-lead ECG reveals a normal sinus rhythm at [address] No [address] elevation. No PACs or PVCs. Cardiac Monitoring: Cardiac monitoring ordered by me: The patient was placed on continuous cardiac monitoring and observed. It revealed a normal sinus rhythm at 70 beats per minute without ectopy or evidence of dysrhythmia. Medical decision rules: none Imaging studies: None HPI: 83 year old Female arrives for evaluation of syncopal event. This occurred this morning. Patient noted to have 1 event where she got very weak. She then had a second event. She does not think that she lost consciousness on the second event. There is possible that she did on the first but details are somewhat foggy. is present and helps with the history. Patient denied any recent illness. She has been in normal health per her and the . She had no prodrome. Patient denied any palpitations or racing heartbeat. She denied any vertigo or room spinning sensation. No prior history of the same. Patient did strike her face and head when she fell. Pt denies headache, fevers, chills, diaphoresis, visual changes, neck pain, chest pain, breathing difficulties, nausea, vomiting, abdominal pain, back pain, melena, hematochezia, urinary symptoms, numbness, weakness, lymphadenopathy, rash, or other complaints. PAST MEDICAL HISTORY: See Below, peptic ulcer disease PAST SURGICAL HISTORY: See below, SOCIAL HISTORY: See Below, HOME MEDICATIONS: See Below ALLERGIES: See Below VITALS: See Below PHYSICAL EXAMINATION: GENERAL: Awake, alert, well-appearing, in no distress HENT: Normocephalic, atraumatic. Oropharynx unremarkable. EYES: Normal conjunctiva. Sclera non-icteric. NECK: Inspection normal. Non-tender. Supple. No nuchal rigidity. FROM. No masses. RESPIRATORY: Clear to auscultation. No wheezes. No rales. Normal respiratory effort. CARDIAC: Normal rate. Normal rhythm. No murmurs. No rubs. Extremities warm and well perfused. Pulses equal. No JVD. GI: Soft, non-distended. No tenderness to palpation. No rebound or guarding. No masses. RECTAL: Deferred. MUSCULOSKELETAL: Atraumatic. Chest examination reveals no tenderness. The back is symmetrical on inspection without obvious abnormality. There is no CVA tenderness to palpation. No joint edema. LOWER EXTREMITIES: Calves are equal size bilaterally and non-tender. No edema. No discoloration. NEURO: Normal sensorium. No sensory or motor deficits noted. SKIN: No rash or jaundice noted. 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, lumbar region Osteopenia Surgical History History of esophagogastroduodenoscopy (EGD) History of cataract surgery History of tooth extraction S/P epidural steroid injection History of cholecystectomy History of tonsillectomy History of appendectomy H/O basal cell carcinoma excision History of colonoscopy Hx of lumpectomy History of exploratory laparotomy Family History Father Family history of stomach cancer Family history of pancreatic cancer Mother Diabetes Myocardial infarction Family history of diabetes mellitus Grandmother Diabetes Other No family history of adverse response to anesthesia Denies family history of Ovarian cancer Prostate cancer Breast cancer Lung cancer Colorectal cancer Stroke Social History Smoking Status: Former smoker Tobacco Type: Cigarettes Age Started Using Tobacco: 18; Age Quit Using Tobacco: 25; packs per day: 0.25; Second Hand Exposure: No; Do You Dip or Chew Tobacco: No; Hx Alcohol Use: Yes Alcohol type: wine Alcohol Intake Frequency: Monthly or Less Hx Substance Use: No Preferred Language: Divehi Communication Ability: Effective Visual Impairment: Limited Hearing Ability: Normal Composite Technician Required: No Beliefs That Will Affect Care: None marital status: / Current Living Situation: Significant Other Current Living Situation Comment: Edgardo Manning, Friend current occupational status: retired current occupation: used to work in a [employer], 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 [place] How many Children do You have: 2 Feels Safe at Home: Yes Childhood Exposure to Second-Hand Smoke: No Diet: regular caffeine: Yes Dental Care, Regularly: Yes Physical Activity Frequency: 3-4 Times per Week Seatbelt Use: always Sunscreen Use: Yes Assistive Devices: Denture - Upper, Denture - Lower and Glasses Allergies Allergies Allergy/AdvReac Type Severity Reaction Status Date / Time No Known Allergies Allergy Verified 01/01/24 17:18 Home Meds Home Medications Medication Instructions Recorded Confirmed ascorbic acid (vitamin C) 1,000 mg 1 g PO QAM 01/07/19 01/01/24 tablet (Vitamin C) juhhpxab-aona-niea 8 mg-folic 400 1 tab PO QAM 01/07/19 01/01/24 mcg-K 50 mcg-lutein 300 mcg tablet (Centrum Silver Women) vit C 250 mg-vit E 90 mg-zinc 40 1 tab PO BID 01/07/19 01/01/24 mg-copper 1 ln-zqrohy-vphyxa capsule (PreserVision AREDS-2) acetaminophen 500 mg tablet 500 mg PO BID PRN Pain 09/15/23 01/01/24 pantoprazole 40 mg tablet,delayed 40 mg PO DAILY 11/11/23 01/01/24 release Previous Rx's Medication Instructions Recorded ferrous sulfate 325 mg (65 mg 325 mg PO Q OTHER DAY 90 days #45 09/21/23 iron) tablet,delayed release tabs tramadol 50 mg tablet 50 mg PO BID PRN pain #30 tabs 11/18/23 methocarbamol 750 mg tablet 750 mg PO TID PRN back spasm #30 12/16/23 tabs Results & Data (ED) Vital Signs Vital Signs - 24 hr 01/01/24 11:50 01/01/24 15:18 01/01/24 15:18 Temperature 36.7 C Temperature Source Temporal Artery Scan Pulse Rate 121 H Pulse Rate [Finger] Respiratory Rate 18 Respiratory Effort / Characteristics Non-Labored Spontaneous Respiratory Depth Normal Respiratory Pattern Blood Pressure 109/69 Blood Pressure [Right Arm] Blood Pressure Mean 82 Blood Pressure Mean [Right Arm] Pulse Oximetry 98 Oxygen Delivery Method Room Air Room Air Room Air Sepsis Recent Fever Within 48 Hours No Sepsis New/Unexplained Change in Mental Status No Sepsis Action Taken by Nursing No Action Required 01/01/24 15:18 01/01/24 16:45 01/01/24 16:52 Temperature Temperature Source Pulse Rate 76 Pulse Rate [Finger] 81 79 Respiratory Rate 16 16 Respiratory Effort / Characteristics Non-Labored Spontaneous Respiratory Depth Normal Respiratory Pattern Regular Blood Pressure Blood Pressure [Right Arm] 99/65 L 129/62 Blood Pressure Mean Blood Pressure Mean [Right Arm] 76 84 Pulse Oximetry 97 97 Oxygen Delivery Method Room Air Room Air Sepsis Recent Fever Within 48 Hours Sepsis New/Unexplained Change in Mental Status Sepsis Action Taken by Nursing Laboratory Data 01/01/24 13:09 01/01/24 13:09 Lab Results 01/01/24 01/01/24 Range/Units 13:09 15:28 WBC 8.63 (4.8-10.8) K/ul RBC 4.79 (4.20-5.40) M/uL Hgb 13.7 (12.0-16.0) g/dl Hct 42.2 (37.0-47.0) % MCV 88.1 (80.0-100.0) fL MCH 28.6 (25.0-34.0) pg MCHC 32.5 (32.0-36.0) g/dL RDW Std Deviation 45.2 (36.4-46.3) fL RDW Coeff of Brain 14.2 (11.5-14.5) % Plt Count 307 (130-400) K/uL MPV 9.4 (9.4-12.4) fL Immature Gran % (Auto) 0.3 % Neut % (Auto) 75.5 % Lymph % (Auto) 16.1 % [place] % (Auto) 6.8 % Eos % (Auto) 0.8 % Baso % (Auto) 0.5 % Neut # (Auto) 6.51 H (1.40-6.50) K/uL Lymph # (Auto) 1.39 (1.20-3.40) K/uL [place] # (Auto) 0.59 (0.11-0.59) K/uL Eos # (Auto) 0.07 (0.00-0.50) K/uL Baso # (Auto) 0.04 (0.00-0.20) K/uL Immature Gran # (Auto) 0.03 (0.01-0.20) K/uL Sodium 135 L (136-145) mmol/L Potassium 4.4 (3.5-5.1) mmol/L Chloride 100 (98-107) mmol/L Carbon Dioxide 28 (21-32) mmol/L Anion Gap 7 (3-11) BUN 20 (6-23) mg/dl Creatinine 1.12 (0.6-1.2) mg/dl Est Cr Clr Drug Dosing Not Reportable Est GFR ( Amer) 51.9 ml/min Est GFR (Non-Af Amer) 44.8 ml/min BUN/Creatinine Ratio 17.9 (10-20) Glucose 104 H (70-99(Fasting)) mg/dl Calcium 9.7 (8.6-10.3) mg/dl Total Bilirubin 0.3 (0.2-1.0) mg/dl AST 15 (13-39) U/L ALT 11 (7-52) U/L Alkaline Phosphatase 58 (34-104) U/L Troponin I High Sens 46.9 H 91.1 H* D (0-14) pg/ml Total Protein 7.8 (6.0-8.3) gm/dl Albumin 4.6 (3.4-5.0) gm/dl Globulin 3.2 (2.5-4.0) gm/dl Albumin/Globulin Ratio 1.4 (0.9-2) TSH 3.065 (0.300-4.500) uIu/ml Administered Medications Tramadol HCl (Tramadol Hcl 50 Mg Tablet) 50 mg PO BID PRN PRN Reason: pain Stop: 01/31/24 20:26 Last Admin: 01/01/24 22:33 Dose: 50 mg Documented By: MMG Discontinued Medications Lorazepam 0.25 mg/ Syringe 0.25 mls @ 2 mls/min IV ONE ONE Stop: 01/01/24 19:46 Last Admin: 01/01/24 20:18 Dose: Not Given Documented By: MMG Lorazepam (Lorazepam 0.5 Mg Tab) 0.5 mg PO NOW STA Stop: 01/01/24 20:08 Last Admin: 01/01/24 20:55 Dose: Not Given Documented By: MMG Lorazepam (Lorazepam 0.5 Mg Tab) Confirm Administered Dose 0.5 mg .ROUTE .STK- MED ONE Stop: 01/01/24 20:17 Last Admin: 01/01/24 20:18 Dose: 0.5 mg Documented By: GINA Imaging Data Radiologist's Impression: Head CT 01/01/24 11:[address] DOSE: 625.8 mGy.cm HISTORY: syncope, hit head TECHNIQUE: Multiaxial CT images of the head were performed without the use of intravenous contrast. Automated exposure control was utilized for this study. A dose lowering technique was utilized adhering to the principles of ALARA. Comparison: Head CT 09/07/2023. Findings: Chronic opacification of the left ethmoid air cell again noted. The mastoid air cells are clear. Mild motion artifact. The calvarium and skull base are intact. There is no mass, hematoma, midline shift, acute infarct. White matter hypodensity is nonspecific but suggestive of microvascular ischemic change. The ventricles and sulci demonstrate mild age-related involutional changes. Impression: Mild motion artifact. No definite acute intracranial abnormality. ACT 112: Negative or not required by law. Electronically signed by: Live Plasencia M.D. 01/01/2024 1:36 PM Discharge Plan Visit Data Chief Complaint: Syncope Stated Complaint: PASSED OUT TWICE TODAY ED Provider: Marv Ludwig Discharge Problem: Syncope and collapse, Elevated troponin, CHI (closed head injury) Discharge Instructions Interventions: ED Discharge Assessment Last Done: 01/01/24 20:28
[2024-01-01] MEDS: LORazepam 0.25 MG in SYRINGE 0.125 ML IV ONE (20:18)
[2024-01-01] MEDS: LORazepam 0.5 MG TAB ONE (20:18)
[2024-01-01] MEDS ORDERED: ACETAMINOPHEN 325 MG TAB PO PRN (20:27)
[2024-01-01] MEDS ORDERED: METHOCARBAMOL 750 MG TABLET PO PRN (20:27)
[2024-01-01] MEDS: LORazepam 0.5 MG TAB PO STA (20:55)
[2024-01-01] MEDS: traMADol HCL 50 MG TABLET PO PRN (22:33)
[2024-01-02] MEDS: FERROUS SULFATE 325 MG TAB PO SCH (00:18)
[2024-01-02 08:40] LABS: Basophils # (auto) 0.03 K/uL (0.00-0.20); Basophils % (auto) 0.4 %; Eosinophils # (auto) 0.07 K/uL (0.00-0.50); Hematocrit (blood only) 37.6 % (37.0-47.0); Hemoglobin 12.4 g/dl (12.0-16.0); Immature Granulocytes # (auto) 0.02 K/uL (0.01-0.20); Immature Granulocytes % (auto) 0.3 %; Lymphocytes # (auto) 1.16 K/uL (1.20-3.40); Lymphocytes % (auto) 16.5 %; Mean Corpuscular Volume 88.1 fL (80.0-100.0); Monocytes # (auto) 0.43 K/uL (0.11-0.59); Monocytes % (auto) 6.1 %; Neutrophils % (auto) 75.7 %; Platelet Count 259 K/uL (130-400); RDW Coefficient of Variation 14.4 % (11.5-14.5); RDW Standard Deviation 45.9 fL (36.4-46.3); Red Blood Count 4.27 M/uL (4.20-5.40); White Blood Count 7.01 K/ul (4.8-10.8)
[2024-01-02 08:44] LABS: BUN Creatinine Ratio 25.3 (10-20); Calcium 9.1 mg/dl (8.6-10.3); Creatinine Clr Calc Pharmacy 40.8 ml/min; Est GFR (African American) 70.4 ml/min; Est GFR (Non-African American) 60.7 ml/min; Potassium 4.1 mmol/L (3.5-5.1)
[2024-01-02] MEDS: PANTOprazole 40 MG TAB PO SCH (08:44)
[2024-01-02 08:51] LABS: Troponin I High Sensitivity 134.9 pg/ml (0-14)
--- NOTE | 2024-01-02 09:27 | XCELERA ---
[id number]\[id number]
--- NOTE | 2024-01-02 13:31 | Discharge Summary ---
Discharge Summary Date of Service January 02, 2024 Notes For Next Care Provider Consider outpatient stress ECHO Medication Changes From Visit None Admission HPI Per Admitting Provider Swati is a 83-year-old female with PMH of COPD, left-sided Oleary's palsy, HLD, GERD, chronic vasomotor rhinitis, adjustment disorder, and CHASE. She presented for syncopal episode and fall the morning of 01/01. Patient's good friend (Edgardo) is present at the bedside and provides additional history, as patient appears anxious and upset about the prospect of staying. Patient's friend reports that she fell in the kitchen this morning, and when he helped her get back up, she got dizzy again while eating at the sink and fell and brought them both down. She denies head strike and LOC. She denies tripping. She denies having her legs give out. She denies dizziness prior to her fall, and is unsure why she fell but reports that she "just felt weak" and went down. Of note, the patient's friend reports that she had diarrhea the morning of 01/01. Patient denies any prior falls. She does not use a cane or walker for ambulation. She reports that she took pantoprazole, iron, and her vitamins this morning; no other medications. Patient is friend denies any slurred speech, unilateral deficits, or facial droop at that time. No changes in diet. No supplemental ox ygen at home. She denies alcohol use, tobacco use, and smoking. No history of stroke, seizures, or MIs. Patient does note that she had a left shoulder injection earlier in the week, and that she takes tramadol for chronic back pain. She also has injections in her left eye, which has she been having for a while; follows with Dr. Gaytan at [facility]. Vital stable at time admission. ROS: Patient endorses generalized weakness, tingling in legs (resolved), and diarrhea. Patient denies fever, chills, nighsweats, changes in hearing/taste/smell/vision, blurry vision, photophobia, dizziness, lightheadedness, CARRILLO, confusion, slurred speech, facial droop, chest pain, cough, SOB, abdominal pain, nausea, vomiting, urinary symptoms, urination, or blood in urine or stool. Principal Dx & Hospital Course #1 = Principal Diagnosis (1) Pre-syncope: Presented with presyncope x 2 with fall and head strike the morning of 01/01. She reports getting up quickly from a seated position and walking across the living room, felt strange and then went down right onto her face. She denies passing out and did hit her nose off the floor. She had her partner get her up and then she walked to the sink in the kitchen and then went down again, no LOC, partner broke her fall. She denies a previous h/o syncope or presyncope. She denies any associated heart palpitations or chest pain. No recent fevers/chills or illness. She does drink water throughout the day and thinks she is hydrated. She had one small loose stool the AM of admission but not profuse diarrhea BPs on arrival low in 90s systolic and orthostatics showed a drop in systolic BP by 17 points She was not given any IVFs but has been hydrating orally and eating since then,orthostatics are now negative-BP lito to 140s systolic with standing on day of discharge No events on telemetry Troponin mildly elevated at 46/91/178/174/134 on serial trend but she never had any chest pain Typically she can easily go up and down stairs all day and walk many blocks without any CP or SOB ECHO with preserved EF, mild LVH, mild AI, no WMAs Head CT negative Hx of symptomatic anemia; however, H&H WNL EKG revealed NSR at 82 bpm, no ischemic symptoms; QTc 418 Suspect orthostasis, perhaps mild dehydration Stable for discharge to home, advised plenty of salty fluids, hydration, being careful with standing up too fast. I do no think she needs any shelter cardiac monitoring Could potentially benefit from an outpatient stress ECHO given elevated trop with hypotension as likely has some degree of underlying CAD-for risk stratification (2) Elevated troponin: as above (3) CHI (closed head injury): no contusions or hematomas, CT head negative no concussion symptoms (4) Iron deficiency anemia: stable continue home Fe tabs (5) B12 deficiency: B12 recently low normal f/u with PCP outpt Plan Dispo-dc to home Discharge Exam Constitutional WD/WN, vitals as above Eyes PERRL, conjunctivae normal, anicteric sclerae Neck trachea midline, no thyromegaly Respiratory normal respiratory effort, lungs clear to auscultation Cardiovascular RRR, no murmur, no edema Vessels: no carotid bruit Chest (Breasts) Chest: normal inspection of chest Gastrointestinal (Abdomen) normal bowel sounds, soft, nontender, no hepatosplenomegaly Musculoskeletal Extremities: extremities normal to inspection; no cyanosis and no clubbing Skin no rashes, warm and dry Neurologic moves all extremities and awake; no focal motor deficits Psychiatric A+Ox3, euthymic affect Lymphatic no lymphedema Updated Medication List Medication Instructions Recorded Confirmed Type ascorbic acid (vitamin C) 1,000 mg 1 g PO QAM 01/07/19 01/01/24 History tablet (Vitamin C) vaddaltb-rpie-rlky 8 mg-folic 400 1 tab PO QAM 01/07/19 01/01/24 History mcg-K 50 mcg-lutein 300 mcg tablet (Centrum Silver Women) vit C 250 mg-vit E 90 mg-zinc 40 1 tab PO BID 01/07/19 01/01/24 History mg-copper 1 cv-eilumn-ubetop capsule (PreserVision AREDS-2) acetaminophen 500 mg tablet 500 mg PO BID PRN Pain 09/15/23 01/01/24 History ferrous sulfate 325 mg (65 mg 325 mg PO Q OTHER DAY 90 days #45 09/21/23 01/01/24 Rx iron) tablet,delayed release tabs pantoprazole 40 mg tablet,delayed 40 mg PO DAILY 11/11/23 01/01/24 History release tramadol 50 mg tablet 50 mg PO BID PRN pain #30 tabs 11/18/23 01/01/24 Rx methocarbamol 750 mg tablet 750 mg PO TID PRN back spasm #30 12/16/23 01/01/24 Rx tabs Hospital Stay Data Consultations 01/01/24 17:52 ED Decision to Admit Stat Diagnostic Imagining Performed 01/01/24 11:56 CT head/brain wo con Stat ECHO Pending Results Patient Have Any Pending Studies at Discharge: No Discharge Instructions Given to Patient (Per Discharging Provider) You were admitted after almost passing out from your blood pressure dropping low with standing. It is important to stay hydrated with some salty drinks and you can add salt to your food. When you stand up, try to wait a minute before walking to make sure you are not lightheaded. You had some strain on the heart from low blood pressures but you did not have a heart attack. You had an echocardiogram of the heart that showed only a mild leaky aortic valve and this can be followed by your PCP. Otherwise, your echocardiogram showed your heart function was normal. Total Time Total Time Spent Total Time Spent (In Minutes): 35 min Discussed care with partner at bedside on day of discharge Total Time Includes: Examination of the Patient, Discharge Planning and Medication Reconciliation Coding Level of Care Code 62839 INP/OBS DISCH >30 MIN Diagnoses Pre-syncope R55 Elevated troponin R79.89 CHI (closed head injury) S09.90XA Iron deficiency anemia D50.9 B12 deficiency E53.8
--- NOTE | 2024-01-02 14:38 | Pharmacy Report ---
ED Pharmacist Progress Note - ED Pharmacist Progress Note Date of Service:: January 02, 2024 Notes:: Received call from pharmacist at [facility]- patient at their pharmacy asking about prescriptions. Reviewed chart at request- patient was discharged from hospital today. It does not appear that any prescriptions were transmitted and do not believe that any were intended to be sent based on discharge summary/instructions but messaged discharging provider to confirm. Awaiting response.
== END 2024-01-02 14:02 | disposition home or self-care (01) ==
LOC: ED 11:29 → EDINP 11:29 → SUATTDRO 17:56 → 2N 20:28